=== PATIENT | female | born 1955 | race Caucasian/White ===

== ENCOUNTER → 2017-12-10 | Outpatient (CLI) | payer BC, OTHER ==
[~2017-12-10] MED LIST: ADVAIRDISKUS; DIAZEPAM 2MG TAB2 MG PO; NAPROSYN500 MG PO
== END ==
LOC: RAD 13:55
DX: R05 Cough (principal); J45.909 Unspecified asthma, uncomplicated

== ENCOUNTER → 2018-06-09 | Outpatient (CLI) | payer OTHER | LOC: RAD 12:15 | DX: R06.02 Shortness of breath (principal); R50.9 Fever, unspecified; M41.85 Other forms of scoliosis, thoracolumbar region ==